=== PATIENT | male | born 1965 | race Hispanic/Latino ===

== ENCOUNTER 2022-02-25 19:38 | Observation (INO) | payer SELFPAY ==
[2022-02-25] MEDS ORDERED: D10W 250 ML IV ONE (20:09)
--- NOTE | 2022-02-25 20:15 | RAD REPORT ---
EXAM DESCRIPTION: Stuart Single View02/25/2022 8:10 pm CLINICAL HISTORY: Slurred speech COMPARISON: none FINDINGS: The lungs appear clear of acute infiltrate. The heart is normal size IMPRESSION: No acute abnormalities displayed
--- NOTE | 2022-02-25 20:15 | RAD REPORT ---
EXAM DESCRIPTION: CT - Ct Stroke Brain Wo Cont - 02/25/2022 8:09 pm CLINICAL HISTORY: Slurred speech COMPARISON: none TECHNIQUE: Computed axial tomography of the head was obtained. All CT scans are performed using dose optimization technique as appropriate and may include automated exposure control or mA/KV adjustment according to patient size. FINDINGS: An intracranial bleed is not seen . The ventricles are normal in caliber. No extra-axial fluid collection is noted. No significant hypodensity within the brain noted Fluid within the sinuses/ mastoids is not seen. IMPRESSION: No acute intracranial abnormality is seen. If patient's symptoms persist MRI of the bra in would be recommended. Dr Adams of the emergency room was notified at 8:08 p.m. on February 25, 2022
[2022-02-25 20:22] LABS: Absolute Lymphocytes (CBC) 1.2 K/uL (0.7-4.9); Lymphocytes % 8.3 % (15.3-44.8); MCV 87.3 fL (80-100); MPV 7.9 fL (7.6-11.3); RBC Red Blood Cell Count 5.04 M/uL (4.33-5.43)
[2022-02-25] MEDS ORDERED: THIAMINE 200 MG/2 ML INJ ONE (20:34)
[2022-02-25] MEDS ORDERED: MULTIVITAMINS 10 ML VIAL (INJ) IV ONE (20:35)
[2022-02-25] MEDS ORDERED: FOLIC ACID 5 MG/ML VIAL ONE (20:36)
[2022-02-25] MEDS ORDERED: NA CHLORIDE 0.9% 1,000 ML ONE (20:36)
[2022-02-25] MEDS ORDERED: ASPIRIN 325 MG TAB ONE (20:36)
[2022-02-25 20:40] LABS: Potassium 3.8 mmol/L (3.5-5.1); Troponin High Sensitivity 6.8 pg/mL (<58.9)
[2022-02-25 21:04] LABS: Urine Blood Negative (Negative); Urine Glucose Negative (Negative); Urine Protein Negative (Negative)
[2022-02-25 21:11] LABS: Protime INR 1.03
[2022-02-25 21:17] LABS: Barbiturates NEGATIVE (NEGATIVE); Benzodiazepines NEGATIVE (NEGATIVE); Cocaine NEGATIVE (NEGATIVE); METHAMPHETAM NEGATIVE (NEGATIVE); Methadone NEGATIVE (NEGATIVE); Opiates NEGATIVE (NEGATIVE); Phencyclidine NEGATIVE (NEGATIVE); THC Cannibis NEGATIVE (NEGATIVE)
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
--- NOTE | 2022-02-25 22:08 | EDPHYS ---
Physician Documentation [facility] Name: Atr Feliz Age: 57 yrs Sex: Male : 1965 Arrival Date: 02/25/2022 Time: 19:42 Bed 2 Private MD: ED Physician Edy Adams HPI: 02/25 20:24 This 57 yrs old Male presents to ER via Wheelchair with complaints of Slurred kdr Speech. 20:24 The patient presents to the emergency department with a speech or higher order brain kdr function problem, aphasia, that is mild. Onset: The symptoms/episode began/occurred suddenly, just prior to arrival. Context: occurred at home, occurred while the patient was at rest. Associated signs and symptoms: Pertinent positives: confusion. Severity of symptoms: At their worst the symptoms were mild moderate just prior to arrival, in the emergency department the symptoms have resolved By the time he had returned from CT. Patient's baseline: Neuro: alert and fully oriented, Motor: no deficits, Ambulation: walks without assistance, Speech: normal for age, The patient's primary language is [place]ese and while he was not able to respond quickly to questions in [place], he did respond appropriately to questions rephrased in [place]ese. Current symptoms: confusion, mildly confused and was somewhat combative in CT. BG found to be 22. The patient has not experienced similar symptoms in the past. The patient has been recently seen by a physician: the patient's primary care provider, 1 week(s) ago, Daughter related that he is poorly compliant with his medications and does not eat properly.. Historical: - Allergies: 20:09 No Known Allergies; kb3 - Home Meds: 22:27 Metformin Oral [Active]; Glyburide Oral [Active]; kl - PMHx: 22:27 NIDDM; kl - PSHx: 20:09 None; kb3 - Immunization history:: Adult Immunizations unknown, Last tetanus immunization: unknown. - Social history:: Smoking status: Patient denies any tobacco usage or history of. Patient/guardian denies using alcohol, street drugs. ROS: 20:24 Constitutional: Negative for fever, chills, and weight loss, Eyes: Negative for injury, kdr pain, redness, and discharge, ENT: Negative for injury, pain, and discharge, Neck: Negative for injury, pain, and swelling, Cardiovascular: Negative for chest pain, palpitations, and edema, Respiratory: Negative for shortness of breath, cough, wheezing, and pleuritic chest pain, Abdomen/GI: Negative for abdominal pain, nausea, vomiting, diarrhea, and constipation, Back: Negative for injury and pain, : Negative for injury, bleeding, discharge, and swelling, MS/Extremity: Negative for injury and deformity, Skin: Negative for injury, rash, and discoloration, Psych: Negative for depression, anxiety, suicide ideation, homicidal ideation, and hallucinations, Allergy/Immunology: Negative for hives, rash, and allergies, Endocrine: Negative for neck swelling, polydipsia, polyuria, polyphagia, and marked weight changes, Hematologic/Lymphatic: Negative for swollen nodes, abnormal bleeding, and unusual bruising. 20:24 Neuro: Positive for altered mental status, speech changes. Exam: 20:24 Constitutional: This is a well developed, well nourished patient who is awake, alert, kdr and in no acute distress. Head/Face: Normocephalic, atraumatic. Eyes: Pupils equal round and reactive to light, extra-ocular motions intact. Lids and lashes normal. Conjunctiva and sclera are non-icteric and not injected. Cornea within normal limits. Periorbital areas with no swelling, redness, or edema. Neck: Trachea midline, no thyromegaly or masses palpated, and no cervical lymphadenopathy. Supple, full range of motion without nuchal rigidity, or vertebral point tenderness. No Meningismus. Chest/axilla: Normal chest wall appearance and motion. Nontender with no deformity. No lesions are appreciated. Cardiovascular: Regular rate and rhythm with a normal S1 and S2. No gallops, murmurs, or rubs. Normal PMI, no JVD. No pulse deficits. Respiratory: Lungs have equal breath sounds bilaterally, clear to auscultation and percussion. No rales, rhonchi or wheezes noted. No increased work of breathing, no retractions or nasal flaring. Abdomen/GI: Soft, non-tender, with normal bowel sounds. No distension or tympany. No guarding or rebound. No evidence of tenderness throughout. Back: No spinal tenderness. No costovertebral tenderness. Full range of motion. Skin: Warm, dry with normal turgor. Normal color with no rashes, no lesions, and no evidence of cellulitis. MS/ Extremity: Pulses equal, no cyanosis. Neurovascular intact. Full, normal range of motion. Neuro: Awake and alert, GCS 15, oriented to person, place, time, and situation. Cranial nerves II-XII grossly intact. Motor strength 5/5 in all extremities. Sensory grossly intact. Cerebellar exam normal. Normal gait. Psych: Awake, alert, with orientation to person, place and time. Behavior, mood, and affect are within normal limits. Vital Signs: 20:36 BP 122 / 70; Pulse 80; Resp 18; Temp 98.1(TE); Pulse Ox 97% on R/A; jb4 21:30 BP 122 / 70; Pulse 84; Resp 20; Pulse Ox 100% on R/A; jb4 22:30 BP 99 / 75; Pulse 78; Resp 17 S; Temp 98.2; Pulse Ox 100% on R/A; bb 23:15 BP 99 / 70; Pulse 71; Resp 16; Pulse Ox 100% on R/A; jb4 NIH Stroke Scale Scores: 20:24 NIHSS Score: 0 kdr 20:28 NIHSS Score: 0 jb4 MDM: 20:24 Data reviewed: vital signs, nurses notes, lab test result(s), EKG, radiologic studies. kdr 22:07 Patient medically screened. kdr 02/25 19:49 Order name: Basic Metabolic Panel; Complete Time: 21:15 kdr 02/25 19:49 Order name: CBC with Diff; Complete Time: 20:40 kdr 02/25 19:49 Order name: High Sensitivity Troponin; Complete Time: 21:15 kdr 02/25 19:49 Order name: Protime (+inr); Complete Time: 21:15 kdr 02/25 19:49 Order name: Ptt, Activated; Complete Time: 21:15 kdr 02/25 20:16 Order name: Glucose, Ancillary Testing; Complete Time: 20:40 EDMS 01 19:49 Order name: CT Stroke Brain w/o Contrast; Complete Time: 20:40 kdr 02/25 19:49 Order name: Stroke CXR 1 View; Complete Time: 20:40 kdr 02/25 20:41 Order name: UDS; Complete Time: 21:24 kdr 02/25 20:41 Order name: ETOH Level; Complete Time: 21:15 kdr 02/25 21:04 Order name: Urine Dipstick-Ancillary; Complete Time: 21:15 EDMS 02/25 21:31 Order name: Glucose, Ancillary Testing; Complete Time: 22:28 EDMA 02/25 22:10 Order name: SARS RAPID; Complete Time: 22:47 02/25 19:49 Order name: EKG; Complete Time: 19:50 kdr 02/25 19:49 Order name: Accucheck; Complete Time: 20:21 kdr 02/25 19:49 Order name: Cardiac monitoring; Complete Time: 20:28 kdr 02/25 19:49 Order name: EKG - Nurse/Tech; Complete Time: 20:28 kdr 02/25 19:49 Order name: IV Saline Lock; Complete Time: 20:28 kdr 02/25 19:49 Order name: Labs collected and sent; Complete Time: 20:28 kdr 02/25 19:49 Order name: NPO; Complete Time: 20:28 kdr 02/25 19:49 Order name: O2 Per Protocol; Complete Time: 20:28 kdr 02/25 19:49 Order name: O2 Sat Monitoring; Complete Time: 20:28 kdr 02/25 19:49 Order name: Stroke Swallow Screen; Complete Time: 20:28 kdr Administered Medications: 20:10 Drug: D10 in Water [4ml/kg] 250 ml Route: IVP; Site: left antecubital; jb4 23:42 Follow up: Response: Blood sugar is elevated bb 20:45 Drug: Banana Bag - (NS 0.9% 1000 ml, foLIC Acid 1 mg, Thiamine 100 mg, Multivitamin 1 jb4 amp) Route: IV; Rate: calculated rate; Site: left antecubital; 23:42 Follow up: IV Status: Completed infusion; IV Intake: 950ml bb 20:45 Drug: Aspirin 325 mg Route: PO; jb4 23:42 Follow up: Response: No adverse reaction bb Disposition Summary: 02/25/22 22:07 Hospitalization Ordered Hospitalization Status: Observation kdr Provider: David Stauffer Location: Telemetry/MedSurg (observation) kdr Condition: Fair kdr Problem: new kdr Symptoms: have improved kdr Bed/Room Type: Standard kdr Room Assignment: 412(02/25/22 23:18) kdr Diagnosis - Hypoglycemia, unspecified kdr - Altered mental status, unspecified kdr Forms: - Medication Reconciliation Form kdr - SBAR form kdr NIH Stroke Scale - NIH Stroke Score Date: 02/25/2022 Time: 20:24 Total Score = 0 1a. Level of Consciousness (LOC) - 0(Alert) 1b. Level of Consciousness (LOC) (Month \T\ Age) - 0(Both) 1c. LOC Commands (Open \T\ Closes Eyes/Toy Stuffer) - 0(Both) 2. Best Gaze (Lateral Gaze Paresis) - 0(Normal) 3. Visual Field Loss - 0(No visual loss) 4. Facial Palsy - 0(Normal) 5a. Left Arm: Motor (10-second hold) - 0(No drift) 5b. Right Arm: Motor (10-second hold) - 0(No drift) 6a. Left Leg: Motor (5-second hold - always test supine) - 0(No drift) 6b. Right Leg: Motor (5-second hold - always test supine) - 0(No drift) 7. Limb Ataxia (finger/nose \T\ heel/cerda - test with eyes open) - 0(Absent) 8. Sensory Loss (pinprick arms/legs/face) - 0(Normal) 9. Best Language: Aphasia (description/naming/reading) - 0(No aphasia) 10. Dysarthria (speech clarity - read or repeat words) - 0(Normal) 11. Extinction and Inattention (visual/tactile/auditory/spatial/personal) - 0(No abnormality) Initials: [facility] NIH Stroke Scale - NIH Stroke Score Date: 02/25/2022 Time: 20:28 Total Score = 0 1a. Level of Consciousness (LOC) - 0(Alert) 1b. Level of Consciousness (LOC) (Month \T\ Age) - 0(Both) 1c. LOC Commands (Open \T\ Closes Eyes/Toy Stuffer) - 0(Both) 2. Best Gaze (Lateral Gaze Paresis) - 0(Normal) 3. Visual Field Loss - 0(No visual loss) 4. Facial Palsy - 0(Normal) 5a. Left Arm: Motor (10-second hold) - 0(No drift) 5b. Right Arm: Motor (10-second hold) - 0(No drift) 6a. Left Leg: Motor (5-second hold - always test supine) - 0(No drift) 6b. Right Leg: Motor (5-second hold - always test supine) - 0(No drift) 7. Limb Ataxia (finger/nose \T\ heel/cerda - test with eyes open) - 0(Absent) 8. Sensory Loss (pinprick arms/legs/face) - 0(Normal) 9. Best Language: Aphasia (description/naming/reading) - 0(No aphasia) 10. Dysarthria (speech clarity - read or repeat words) - 0(Normal) 11. Extinction and Inattention (visual/tactile/auditory/spatial/personal) - 0(No abnormality) Initials: jb4 Signatures: Dispatcher [employer] EDBrooke Corral, RN RN Edy Farris MD MD kdr Jai Browning RN RN jb4 Yani Rey RN RN [email or web address] Elsy Galeana PA-C PA-C sb4 Ballard, Brenda RN bb Corrections: (The following items were deleted from the chart) 22:27 20:09 Home Meds: None; mamie theodore 22:27 20:09 PMHx: None; mamie theodore 23:18 22:07 kdr kdr
--- NOTE | 2022-02-25 22:32 | P.HP ---
Certification for Inpatient Patient admitted to: Observation With expected LOS: <2 Midnights Patient will require the following post-hospital care: None Practitioner: I am a practitioner with admitting privileges, knowledge of patient current condition, hospital course, and medical plan of care. Services: Services provided to patient in accordance with Admission requirements found in Title 42 Section 412.3 of the Code of Federal Regulations Patient History Date of Service: 02/25/22 Primary Care Provider: Jamari montemayor Reason for admission: Hypoglycemia History of Present Illness: Patient is a 57-year-old male with past medical history of noninsulin-dependent type 2 diabetes and hyperlipidemia who presented to the emergency department with altered mental status. Code stroke was initially called but he was found to have a blood sugar of 20. Patient's family reports that he used to take [id number]-kliymbm insulin but was recently switched over to metformin and glyburide by the [facility]. However, family is unsure if he has been taking his medications or not. They say that patient has been acting abnormally for a week or so and that he barely eats. He does not check his BS at home. Head CT was negative for CVA. UDS/etoh negative. His mentation improved with D10W. He is now awake alert answering questions appropriately. He is primarily Serbian-speaking but can answer most questions. Blood sugar has come up to 157. ED provider wishes to admit patient for observation. Home medications list reviewed: Yes - Past Medical/Surgical History Diabetic: Yes -: Type 2 Diabetes, Non-Insulin Dependent -: Hyperlipidemia Past Surgical History: Patient denies surgical history Psychosocial/ Personal History: Patient lives at home alone. - Family History Brother -: Diabetes - Social History Smoking Status: Former smoker Alcohol use: No CD- Drugs: No Caffeine use: Yes Place of Residence: Home Review of Systems Unremarkable Physical Examination - Vital Signs Temperature: 98.1 F Blood Pressure: 122/70 Pulse: 84 Respirations: 20 Pulse Ox (%): 100 - Physical Exam General: Alert, In no apparent distress, Oriented x3 HEENT: Atraumatic, PERRLA, EOMI, Sclerae nonicteric Neck: Supple, 2+ carotid pulse no bruit Respiratory: Clear to auscultation bilaterally, Normal air movement Cardiovascular: Regular rate/rhythm, Normal S1 S2 Gastrointestinal: Normal bowel sounds, No tenderness Musculoskeletal: No tenderness Integumentary: No rashes Neurological: Normal speech, Normal strength at 5/5 x4 extr, Normal tone, Normal affect - Studies Laboratory Data (last 24 hrs) 02/25/22 20:55: PT 11.3, INR 1.03, APTT 30.1 02/25/22 20:12: WBC 15.00 H, Hgb 14.8, Hct 44.0, Plt Count 225 02/25/22 20:12: Sodium 141, Potassium 3.8, BUN 12, Creatinine 1.02, Glucose 40 L* Assessment and Plan - Problems (Diagnosis) (1) Type 2 diabetes mellitus Current Visit: Yes Status: Chronic Qualifiers: Diabetes mellitus fdc insulin use: without fdc use Diabetes mellitus complication status: with hypoglycemia Diabetes mellitus complication detail: without coma Qualified Code(s): E11.649 - Type 2 diabetes mellitus with hypoglycemia without coma (2) Hyperlipidemia Current Visit: Yes Status: Chronic Qualifiers: Hyperlipidemia type: unspecified Qualified Code(s): E78.5 - Hyperlipidemia, unspecified - Plan Patient is admitted for observation for hypoglycemia. Hypoglycemia secondary to sulfonylurea and not eating. Monitor BS every 4 hours. D5 1/2 at 75 cc/hr. Check A1c and lipid panel in morning. Diabetic education consult. Patient's family requesting prescription for glucometer on dispo. Hold diabetic medications for now. Monitor and replete electrolytes per protocol. Full code. Discharge Plan: Home Plan to discharge in: 24 Hours - Advance Directives Does patient have a Living Will: No Does patient have a Durable POA for Healthcare: No - Code Status/Comfort Care Code Status Assessed: Yes Code Status: Full Code Physician Review: Patient Assessed, Agree with Above Assessment and Plan Critical Care: No Time Spent Managing Pts Care (In Minutes): 50
[2022-02-25 22:46] LABS: SARS-CoV-2 Antigen Rapid Res Negative (Negative)
[2022-02-26] MEDS ORDERED: ACETAMINOPHEN 500 MG TAB PO PRN (00:10)
[2022-02-26] MEDS ORDERED: ONDANSETRON 4 MG/2 ML VIAL IV PRN (00:10)
[2022-02-26] MEDS: D5 0.45 NS 1,000 ML IV SCH ×2 (00:40→16:16)
[2022-02-26 01:36] VITALS: BMI 21.6
[2022-02-26 04:22] LABS: Absolute Lymphocytes (CBC) 1.6 K/uL (0.7-4.9); Hematocrit 38.3 % (39.6-49.0); Lymphocytes % 17.2 % (15.3-44.8); MCV 86.5 fL (80-100); MPV 8.4 fL (7.6-11.3); RBC Red Blood Cell Count 4.43 M/uL (4.33-5.43)
[2022-02-26 04:42] LABS: Magnesium 1.7 mg/dL (1.6-2.4); Phosphorus 3.6 mg/dL (2.5-4.9); Potassium 3.7 mmol/L (3.5-5.1)
[2022-02-26] MEDS ORDERED: DEXTROSE 10%-WATER 500 ML IV SCH ×2 (05:00→05:30)
[2022-02-26] MEDS: INSULIN -REGULAR HUMAN 50 UNIT/0.5 ML ML SQ SCH ×4 (07:30→21:41)
[2022-02-26] MEDS ORDERED: MAGNESIUM SULFATE 1 gm IVPB 1 GM/100 ML BAG IV ONE (09:00)
[2022-02-26] MEDS ORDERED: POTASSIUM CL SA 10 MEQ TAB PO ONE (09:00)
[2022-02-26] MEDS ORDERED: INFLUENZA VACCINE (for 6+ mo) 0.5 ML DOSE IMVAC ONE (10:00)
[2022-02-26] MEDS: METFORMIN ER 500 MG TAB PO SCH (16:13)
[2022-02-26] MEDS ORDERED: ATORVASTATIN 10 MG TAB PO SCH (21:00)
--- NOTE | 2022-02-26 23:53 | P.PN ---
Subjective Date of Service: 02/26/22 Physical Examination - Vital Signs Temperature: 97.5 F Blood Pressure: 120/75 Pulse: 78 Respirations: 18 Pulse Ox (%): 98 Assessment & Plan - Advance Directives Does patient have a Living Will: No Does patient have a Durable POA for Healthcare: No - Code Status/Comfort Care Code Status: Full Code Physician Review: Patient Assessed, Agree with Above Assessment and Plan
[2022-02-26 23:59] VITALS: O2SAT 98
[2022-02-27 03:49] LABS: Absolute Lymphocytes (CBC) 2.2 K/uL (0.7-4.9); Hematocrit 41.3 % (39.6-49.0); Lymphocytes % 30.3 % (15.3-44.8); MPV 7.8 fL (7.6-11.3); RBC Red Blood Cell Count 4.74 M/uL (4.33-5.43)
[2022-02-27 04:07] LABS: Albumin 3.5 g/dL (3.4-5.0); Bilirubin Total 0.8 mg/dL (0.2-1.0); Potassium 3.9 mmol/L (3.5-5.1); Protein, Total 6.7 g/dL (6.4-8.2)
[2022-02-27] MEDS ORDERED: POTASSIUM CL SA 10 MEQ TAB PO ONE (05:00)
[2022-02-27] MEDS: INSULIN -REGULAR HUMAN 50 UNIT/0.5 ML ML SQ SCH (07:30)
[2022-02-27] MEDS: METFORMIN ER 500 MG TAB PO SCH (07:58)
--- NOTE | 2022-02-27 09:33 | RAD REPORT ---
EXAM DESCRIPTION: CT - Head Brain Wo Cont - 02/27/2022 9:23 am CLINICAL HISTORY: CVA COMPARISON: February 25, 2022 TECHNIQUE: Computed axial tomography of the head was obtained. IV contrast was not requested. All CT scans are performed using dose optimization technique as appropriate and may include automated exposure control or mA/KV adjustment according to patient size. FINDINGS: An intracranial bleed is not seen . The ventricles are normal in caliber. No significant hypodense areas within the brain visualized No extra-axial fluid collection is noted. Fluid within the sinuses/ mastoids is not seen. IMPRESSION: No acute intracranial abnormality is seen. If patient's symptoms persist MRI of the bra in would be recommended.
[2022-02-27 09:53] VITALS: BP 111/76; TEMP 98.6
--- NOTE | 2022-02-27 14:23 | EKG ---
Test Date: 2022-02-25 Test Time: 20:18:20 Carton Inspector: GABE MEASUREMENT RESULTS: Intervals: Rate: 81 SD: 172 QRSD: 96 QT: 392 QTc: 455 [employer]: P: 78 SD: 172 QRS: 46 T: 55 INTERPRETIVE STATEMENTS: Normal sinus rhythm Incomplete right bundle branch block Borderline ECG No previous ECG available for comparison Electronically Signed On 02-27-22 14:23:06 CRITICAL CARE [facility] by Benjamin Chavarria
[2022-02-28] MEDS ORDERED: DRISDOL (VITAMIN D=ERGOCALCIFEROL) 50000 UNIT CAP PO SCH (09:00)
== END 2022-02-27 10:11 | disposition home or self-care (01) ==
LOC: ER 19:38 → ERHOLD 22:28 → 4TH 23:46
PROVIDERS: ADMIT Hospitalist; ATTEND Hospitalist
DX: E11.649 Type 2 diabetes mellitus with hypoglycemia without coma (principal); E78.5 Hyperlipidemia, unspecified; R41.82 Altered mental status, unspecified; Z20.822 Contact with and (suspected) exposure to COVID-19; Z87.891 Personal history of nicotine dependence
CPT/HCPCS: 36415; 70450; 71045; 80048; 80053; 80061; 80307; 81003; 82947; 83036; 83735; 84100; 84484; 85025; 85610; 85730; 87811; 93005; 96365; 96366; 99285; G0378; G0480; J1815; J3411; J3475; J7030; J7799